=== PATIENT | female | born 1970 | race Caucasian/White ===

== ENCOUNTER 2017-12-07 22:41 | Emergency (ER) | END 2017-12-08 04:58 | disposition home or self-care (01) ==

== ENCOUNTER 2018-12-09 17:41 | Emergency (ER) | payer OTHER ==
[~2018-12-09] VITALS: Ht 167.6 cm; Wt 55.7 kg
[~2018-12-09 17:41] MED LIST: CEPH-443 PO; SULF1TAB31 PO
[2018-12-09 17:46] VITALS: Ht 167.6 cm; Wt 55.7 kg
[2018-12-09 20:41] VITALS: BP 148/87; PULSE 16; RESP 17
== END 2018-12-09 20:41 | disposition home or self-care (01) ==
LOC: FTE 17:41
DX: L03.119 Cellulitis of unspecified part of limb (principal); F11.10 Opioid abuse, uncomplicated; F17.210 Nicotine dependence, cigarettes, uncomplicated
CPT/HCPCS: Z7502; Z7610; 99283